=== PATIENT | male | born 1970 | race Caucasian/White ===

== ENCOUNTER → 2020-10-18 | Outpatient (CLI) | payer OTHER | LOC: MRI 16:38 | PROVIDERS: ATTEND Family Medicine | DX: S83.231A Complex tear of medial meniscus, current injury, right knee, initial encounter (principal); M25.561 Pain in right knee; G89.29 Other chronic pain; M17.11 Unilateral primary osteoarthritis, right knee; X58.XXXA Exposure to other specified factors, initial encounter; Y93.89 Activity, other specified; Y92.89 Other specified places as the place of occurrence of the external cause; Y99.8 Other external cause status ==